=== PATIENT | male | born 1955 | race Caucasian/White ===

== ENCOUNTER 2017-02-27 06:35 | Day surgery (SDC) | payer BC ==
[2017-02-19 09:56] LABS: HEMATOCRIT 45.7 % (37.9-51.0); HEMOGLOBIN 15.5 g/dL (13.5-17.0); HGB HCT DIFFERENCE 0.8; MEAN CORPUSCULAR HEMOGLOBIN 28.9 pg (27.0-33.4); MEAN CORPUSCULAR HGB CONC 33.9 g/dL (32.0-36.0); MEAN CORPUSCULAR VOLUME 85 fl (80-97); RED BLOOD COUNT 5.36 10^6/uL (4.35-5.55); RED CELL DISTRIBUTION WIDTH 13.5 % (11.5-14.0); WHITE BLOOD COUNT 7.5 10^3/uL (4.0-10.5)
[2017-02-19 10:19] LABS: ALBUMIN 5.1 g/dL (3.5-5.0); AMYLASE 84 U/L (30-110); ANION GAP 13 (5-19); CARBON DIOXIDE 27 mmol/L (22-30); CHLORIDE 103 mmol/L (98-107); GLUCOSE 87 mg/dL (75-110); TOTAL PROTEIN 8.1 g/dL (6.3-8.2)
[2017-02-19 10:20] LABS: ALANINE AMINOTRANSFERASE 32 U/L (21-72); ALKALINE PHOSPHATASE 71 U/L (38-126); ASPARTATE AMINO TRANSFERASE 18 U/L (17-59); BILIRUBIN,DIRECT 0.3 mg/dL (0.0-0.4); BILIRUBIN,TOTAL 0.5 mg/dL (0.2-1.3); BLOOD UREA NITROGEN 18 mg/dL (7-20); CALCIUM 10.5 mg/dL (8.4-10.2); CREATININE RESULT 1.37 mg/dL (0.52-1.25)
[~2017-02-27 06:35] MED LIST: CEFAZOLIN 1 GM/D5W RTU 1 GM/50 ML RTUPB IV PRN; LACTATED RINGERS 1000 ML IV PRN; LIDOCAINE 0.5% INJ-PF (5 MG/ML) 50 ML SDV SUBCUT PRN
[2017-02-27] MEDS ORDERED: BUPIVACAINE HCL 0.25 % INJ/PF (2.5 MG/1 ML) 30 ML VIAL ONE (07:17)
[2017-02-27] MEDS ORDERED: ALBUTEROL SULFATE 0.083% NEB 2.5 MG/3 ML AMPUL NEB ONE (07:27)
[2017-02-27] MEDS ORDERED: FENTANYL CITRATE INJ/PF 100 MCG/2 ML AMPUL ONE ×2 (08:22→10:02)
[2017-02-27] MEDS ORDERED: ACETAMINOPHEN 100 ML IV ONE (08:23)
[2017-02-27] MEDS ORDERED: PROPOFOL INJ 200 MG/20 ML VIAL IV ONE (08:23)
[2017-02-27] MEDS ORDERED: MIDAZOLAM 2 MG/2 ML INJ ONE (08:23)
[2017-02-27] MEDS ORDERED: PROMETHAZINE HCL INJ 25 MG/1 ML VIAL IV PRN ×2 (08:58)
[2017-02-27] MEDS ORDERED: MEPERIDINE HCL/PF INJ 25 MG/1 ML DISP.SYRIN IV PRN (08:58)
[2017-02-27] MEDS ORDERED: FENTANYL CITRATE INJ/PF 100 MCG/2 ML AMPUL IV PRN ×3 (08:58)
[2017-02-27] MEDS ORDERED: OXYCODONE-ACETAMINOPHEN 5-325 MG TABLET PO PRN ×4 (08:58→09:47)
[2017-02-27] MEDS ORDERED: MORPHINE SULFATE 10 MG/ML INJ IV PRN (08:58)
[2017-02-27] MEDS ORDERED: DIPHENHYDRAMINE HCL 50 MG/ML VIAL IV PRN (08:58)
--- NOTE | 2017-02-27 09:40 | Operative Report ---
Operative Report DATE OF SURGERY: 02/27/17 PREOPERATIVE DIAGNOSIS: Symptomatic cholelithiasis with cholecystitis POSTOPERATIVE DIAGNOSIS: same OPERATION: Laparoscopic cholecystectomy SURGEON: BRAD DAMIAN RESEARCH TECHNOLOGIST: NAHED TOMLINSON ANESTHESIA: GA TISSUE REMOVED OR ALTERED: 1 gallbladder with contents COMPLICATIONS: None ESTIMATED BLOOD LOSS: Scant INTRAOPERATIVE FINDINGS: See below PROCEDURE: Patient was taken from the preop holding area the main operating room where general anesthesia was induced. The abdomen was exposed arms abducted the abdomen was prepped and draped in sterile fashion. Instrumentation set up for laparoscopic cholecystectomy Surgical plan and surgical timeout were conducted Skin was anesthetized with quarter percent Marcaine. A supraumbilical vertical incision was made with a knife and Veress needle inserted peritoneal cavity pneumoperitoneum was established. Veress needle was removed, 5 mm ports inserted a 5 mm viewing scope was inserted under direct visualization, 3 additional 5 mm ports were placed into the peritoneal cavity when the subxiphoid and 2 in the subcostal region. Findings are significant for no bleeding and no evidence of visceral injury. Graspers were placed on the fundus of the gallbladder and infundibulum. The gallbladder was reflected up over the surface of the liver. The neck of the gallbladder its junction with the cystic duct was dissected out. Cystic duct cystic artery, and node of Calot low all identified and dissected out. Photos taken. Cystic artery was surrounded with a right angle clamp, clipped twice proximally once distally and divided with scissors. Critical view obtained. Conway of Calot low open nicely. Photos taken. Cystic duct photographed, clipped twice proximally once distally and then divided with scissors. Gallbladder was removed from the liver bed using hook dissection. There was a posterior lateral branch of the cystic artery which was clipped and divided as well. The gallbladder was then released brought out of the patient to the supraumbilical port site incision and sent to pathology. We returned the peritoneal cavity check for bleeding there was none. Sponge and needle counts are correct. All ports removed under direct visualization, pneumoperitoneum evacuated and wounds closed with 3-0 Vicryl benzoin and Steri- Strips Patient tolerated procedure well taken to recovery room in stable condition. The physician medical assistant float, Ms. Wilkerson, provided assistance during this case by: Assisting and port insertion, retracting tissue, instillation of local anesthesia and closure of skin incisions.
[2017-02-27] MEDS ORDERED: ONDANSETRON HCL INJ/PF 4 MG/2 ML SDV IV PRN (09:47)
--- NOTE | 2017-02-27 09:47 | PDOC DISCHARGE SUMMARY ---
Discharge Summary (SDC) - Discharge Final Diagnosis: laparoscopic cholecystectomy Date of Surgery: 02/27/17 Discharge Date: 02/27/17 Condition: Stable Treatment or Instructions: [facility] [address], [place] [address] Discharge Instructions: Laparoscopic Surgery 1. General Information: a. DO NOT DRIVE a car or operate dangerous machinery for 3-4 days or while taking narcotic pain pills. b. DO NOT consume alcohol, tranquilizers, sleeping medications or any non- prescribed medications for 24 hours unless approved by your doctor or as long as taking narcotic prescription medications. c. DO NOT make important decisions or sign any important papers for the first 24 hours after surgery. d. When discharged home the same day of surgery have a responsible person with you for the first night. 2. Activity Restrictions: 2 weeks a. NO heavy lifting, straining abdominal muscles, bending over a lot, yard work, house work, or sports for [address] NOT [address] for 3-4 days or while taking __Ultram_ . c. It is fine to go for walks, up and down steps, ride in a car. d. Elevate your head when sleeping/resting. 3. Treatment: a. You may shower 24 hours after surgery, no baths or swimming for 2 weeks. Remove band-aids or dressings before shower but leave paper strips (steri-strips ) on the skin to fall off on their own. If still on at postoperative visit they will be removed then. b. Drainage of fluid or blood is not unusual from an incision. If occurs, you can clean with peroxide and cotton ball daily and cover with dry gauze until the wound seals. c. If a lot of bleeding occurs, you can hold pressure with a gauze or cloth over the site for 10 minutes and it will usually stop. If bleeding continues you will need to call for possible evaluation in office or emergency room. 4. Medications: a. __Ultram_ may be taken for pain as needed, one or two tablets every 4-6 hours. Stop the narcotic when able since you cannot take it and drive, and they cause constipation. You may switch to plain Tylenol, Advil or Aleve as you transition from the narcotic. Many adults find good pain relief with Advil 600- 800 mg three times a day with meals. This can cause indigestion, ulcers, and kidney problems with long-term use. b. You should resume all normal medications unless a change is specified by your doctors. 5. Diet: Begin with clear liquids and may progress to your normal diet if not nauseated. No high fat, high protein foods the day of surgery. 6. The following may occur after laparoscopic surgery: a. Shoulder or upper back ache from retained gas that should resolve in 1-2 days b. Soreness and bruising at incision sites will resolve with time. c. Scrotal swelling (labia in women) and bruising is often seen after hernia surgery. d. Sore throat e. Fatigue may last days to weeks. f. Difficulty urinating may occur and may need to come into emergency room for urinary catheter placement. 7. Notify Physician If: a. Worsening or pain not improved with pain medication b. Persistent nausea and vomiting c. Fever above 101 d. Persistent bleeding or swelling at operative site e. Unable to urinate and uncomfortable bladder 6-8 hours after surgery 8..Follow Up Care: a. Schedule a follow up appointment with your doctor for 2 weeks. In the event of any postoperative problems or questions or you may call the office during business hours or the On-Call physician evenings and weekends at [facility]. [facility] I understand the instructions for my postoperative care as described above and a copy has been given to me. Patient/Significant Other Witness Date Prescriptions: Tramadol HCl [Ultram 50 mg Tablet] 50 mg PO Q6HP PRN #30 tablet PRN Reason: Discharge Diet: As Tolerated Respiratory Treatments at Home: Deep Breathing/Coughing Discharge Activity: Activity As Tolerated Report the Following to Your Physician Immediately: Vomiting, Fever over 101 Degrees, Redness, Swelling, Warmth, Drainage-Foul Smelling
--- NOTE | 2017-02-27 10:56 | EKG REPORT ---
SEVERITY:- ABNORMAL ECG - SINUS RHYTHM INCOMPLETE RIGHT BUNDLE BRANCH BLOCK : Confirmed by: Hal Gray 27-Feb-2017 10:54:58
[2017-02-27 11:36] VITALS: BP 130/81
[2017-02-27] MEDS ORDERED: KETOROLAC TROMETHAMINE 60 MG/2 ML SDV ONE (12:08)
[2017-02-27] MEDS ORDERED: NEOSTIGMINE METHYLSULFATE 10 MG/10 ML VIAL ONE (12:08)
[2017-02-27] MEDS ORDERED: GLYCOPYRROLATE INJ 0.4 MG/2 ML VIAL ONE (12:08)
[2017-02-27] MEDS ORDERED: ROCURONIUM BROMIDE INJ 50 MG/5 ML VIAL IV ONE (12:08)
[2017-02-27] MEDS ORDERED: ONDANSETRON HCL INJ/PF 4 MG/2 ML SDV ONE (12:08)
[2017-02-27] MEDS ORDERED: DEXAMETHASONE SOD PHOSPHATE INJ 4 MG/1 ML VIAL ONE (12:08)
[2017-02-27] MEDS ORDERED: SUCCINYLCHOLINE CHLORIDE INJ 200 MG/10 ML VIAL ONE (12:08)
== END 2017-02-27 11:37 | disposition home or self-care (01) ==
LOC: OROUT 06:35
PROVIDERS: ATTEND Surgery
PROC: 0FT44ZZ Resection of Gallbladder, Percutaneous Endoscopic Approach (ICD-10-PCS; principal; 2017-02-27 09:00)
DX: K80.10 Calculus of gallbladder with chronic cholecystitis without obstruction (principal); I10 Essential (primary) hypertension; E78.00 Pure hypercholesterolemia, unspecified; F17.290 Nicotine dependence, other tobacco product, uncomplicated; Z87.891 Personal history of nicotine dependence; Z79.82 Long term (current) use of aspirin; Z79.899 Other long term (current) drug therapy
CPT/HCPCS: 36415 ×2; 82150; 84132; 85027; 80076; 80048; 88304 ×2; 93005; 93010; 94640; 47562; J2250; J0690; J3490; J1100; J1885; J3010; J0330; J2405; J2704; J0131; 790